=== PATIENT | female | born 1990 | race Two or more races ===

== ENCOUNTER 2023-10-03 17:14 | Emergency (ER) | payer OTHER ==
[~2023-10-03] VITALS: Ht 170.2 cm; Wt 118.5 kg
[2023-10-03 17:19] VITALS: BP 131/92; PULSE 74; RESP 18; O2SAT 100
== END 2023-10-03 17:32 | disposition left against medical advice (07) ==
LOC: ER 17:14
DX: G43.909 Migraine, unspecified, not intractable, without status migrainosus (principal); Z53.21 Procedure and treatment not carried out due to patient leaving prior to being seen by health care provider